=== PATIENT | male | born 1950 | race Caucasian/White ===

== ENCOUNTER → 2017-06-15 | Outpatient (CLI) | payer MEDICARE ==
[2017-06-15] VITALS (11 sets, daily range): BP systolic 111–177; BP diastolic 74–97; PULSE 51–73
[~2017-06-15] VITALS: Ht 185.4 cm; Wt 82.7 kg
[~2017-06-15] MED LIST: ASPIRIN 81M81 MG/TA2 PO; PRINZIDE 12.5 M1 TA1 PO; PROVENTIL0.09 MG/A1 IH; XANAX 1MG1 MG PO; ZANTAC 150MG T150 MG PO
[2017-06-15 13:37] LABS: PROTHROMBIN TIME 11.3 SECONDS (9.7-12.8)
== END ==
LOC: COL.RAD 12:21
PROVIDERS: Physician Assistant
DX: K80.20 Calculus of gallbladder without cholecystitis without obstruction (principal); N20.0 Calculus of kidney; B18.2 Chronic viral hepatitis C; Z79.01 Long term (current) use of anticoagulants
CPT/HCPCS: J3010

== ENCOUNTER 2021-02-16 07:07 | Day surgery (SDC) | payer MEDICARE ==
[~2021-02-16] VITALS: Ht 182.9 cm; Wt 69.0 kg
[2021-02-16 07:34] VITALS: BP 118/76; PULSE 87; TEMP 97.7
[2021-02-16] MEDS ORDERED: PRILOTC PO (07:52)
[2021-02-16] MEDS ORDERED: VITAMINC1000TA PO (07:52)
[2021-02-16] MEDS ORDERED: VITAMIN E 400 U4001 PO (07:53)
[2021-02-16] MEDS ORDERED: D3-5050000 IU PO (07:53)
[2021-02-16] MEDS ORDERED: PHARMASSURE ZIN50 MG PO (07:53)
[2021-02-16] MEDS ORDERED: VITAMIN B12 781 TAB PO (07:54)
--- NOTE | 2021-02-16 07:56 | NUR ---
TO RM 6 AT 0709-- CALL LIGHT IN REACH WILL CALL FAMILY FOR RIDE HOME
[2021-02-16 09:58] VITALS: BP 105/69; PULSE 75; TEMP 98.7
--- NOTE | 2021-02-16 09:58 | NUR ---
TO RM 6 PER CART FROM OR. RESPONGS TO TACTILE STIMULATION.HE WILL ANSWER QUESTIONS BY NODDING HIS HEAD AND FALL BACK TO SLEEP. DENIES PAIN OR DISCOMFORT. 02 PER MASK AT 6L AND SATS 100% HE CAME OUT OF OR ON .
[2021-02-16] MEDS ORDERED: NORCO 325 MG-51 TAB PO (10:03)
[2021-02-16 10:15] VITALS: BP 112/71; PULSE 77; TEMP 98.7
--- NOTE | 2021-02-16 10:15 | NUR ---
PATIENT MORE AWAKE AND TALKING TO STAFF. DR TATE INTO TALK WITH PATIENT. CONTINUES TO HAVE O2 AT 6L PER MASK AND SATS 100%. DISCONTINUED 02. RECEIVED WATER WITH SIPS OF WATER.
[2021-02-16 10:30] VITALS: BP 117/76; PULSE 73
--- NOTE | 2021-02-16 10:30 | NUR ---
RECEIVED MUFFIN AND HOT OBI. SITTING UP EATING.
[2021-02-16 10:45] VITALS: BP 109/68; PULSE 78
--- NOTE | 2021-02-16 10:45 | NUR ---
RECEIVED 2ND MUFFIN AND HOT CHOCOLATE.
--- NOTE | 2021-02-16 11:05 | NUR ---
ATE 100% AND TOLERATED WELL. RECEIVED DISCHARGE INSTRUCTIONS AND VERBALIZED UNDERSTANDING. DISCONTINUED IV AND INT
--- NOTE | 2021-02-16 11:30 | NUR ---
DISCHARGED PER WC BY NURSING STAFF TO PRIVATE CAR IN CARE OF SISTER IN LAW.
== END 2021-02-16 11:35 | disposition home or self-care (01) ==
LOC: SDCO 07:07
DX: K40.90 Unilateral inguinal hernia, without obstruction or gangrene, not specified as recurrent (principal); I10 Essential (primary) hypertension; J44.9 Chronic obstructive pulmonary disease, unspecified; F41.9 Anxiety disorder, unspecified; F17.210 Nicotine dependence, cigarettes, uncomplicated; Z79.899 Other long term (current) drug therapy; Z79.82 Long term (current) use of aspirin
CPT/HCPCS: C1781; J0690; J1100; J2405; J2704; J3010; J7120

== ENCOUNTER 2022-12-26 10:00 | Day surgery (SDC) | payer MEDICARE ==
[2022-12-26] VITALS (13 sets, daily range): BP systolic 93–125; BP diastolic 56–81; PULSE 71–86; TEMP 97.8
[~2022-12-26] VITALS: Ht 182.9 cm; Wt 68.8 kg
[~2022-12-26 10:00] MED LIST changes: +D3-5050000 IU PO; +NORCO 325 MG-51 TAB PO; +PHARMASSURE ZIN50 MG PO; +PRILOTC PO; +VITAMIN B12 781 TAB PO; +VITAMIN E 400 U4001 PO; +VITAMINC1000TA PO
[2022-12-26] MEDS ORDERED: TOPROL XL 50MG50 MG PO (10:42)
[2022-12-26] MEDS ORDERED: FLOMAX 0.40.4 MG/CAP PO (10:43)
[2022-12-26] MEDS ORDERED: NITROSTAT0.4 MG/TAB SL (10:44)
[2022-12-26] MEDS ORDERED: PROSCAR 5MG5 MG PO (10:45)
[2022-12-26] MEDS ORDERED: LASIX 40MG TABL40 MG PO (10:46)
[2022-12-26] MEDS ORDERED: PROAIR HFA0.09 MG/AC IH (10:46)
[2022-12-26] MEDS ORDERED: ZESTRIL 10MG10 MG PO (10:46)
[2022-12-26 10:52] LABS: HEMATOCRIT 41.9 % (42.0-52.0); HEMOGLOBIN 14.3 g/dl (13.5-18.0); MEAN CELL VOLUME 92 fl (80.0-100.0); MEAN CORPUSCULAR HEMOGLOBIN 31 pg (27-31); MEAN CORPUSCULAR HGB CONC 34 g/dl (33.0-37.0); MEAN PLATELET VOLUME 10.9 fl (7.4-10.4); PLATELET COUNT 183 K/mm3 (130-400); RED BLOOD COUNT 4.58 M/mm3 (4.20-5.60); REDCELL DISTRIBUTION WIDTH-CV 13.2 % (11.5-14.5)
[2022-12-26 10:55] LABS: PROTHROMBIN TIME 11.6 SECONDS (9.7-12.8)
[2022-12-26] MEDS ORDERED: DOXYCYCLINE 10100 MG PO (11:01)
[2022-12-26] MEDS ORDERED: PREDNISONE20 MG PO (11:02)
[2022-12-26 11:04] LABS: CALCIUM 8.8 mg/dL (8.4-10.2); CREATININE, serum 0.83 mg/dL (0.72-1.25)
--- NOTE | 2022-12-26 12:06 | NUR ---
SEE MERGE FOR ALL MEDICATIONS, VITALS AND INTERVENTIONS.
--- NOTE | 2022-12-26 14:00 | NUR ---
Pt was assisted onto bedpan, passed small amount of stool. Rt groin site remains soft to palpation, and pt is free of complaints. He ate meal tray shortly after return from laboratory courier. Call light in reach.
--- NOTE | 2022-12-26 17:10 | NUR ---
Pt assisted up to restroom following 4 hr flat time post procedure. Rt femoral access site remains soft to palpation and dressing clean, dry and intact following activity. Pt free of complaints and gait is steady. IV DC'd, site wrapped with coban. DC instruction reviewed, pt expresses understanding. He will be assistedou to meet his friend for ride home.
== END 2022-12-26 17:10 | disposition home or self-care (01) ==
LOC: COL.CAR 10:00
PROVIDERS: Internal Medicine Cardiovascular Disease
DX: I42.8 Other cardiomyopathies (principal); I11.0 Hypertensive heart disease with heart failure; F17.210 Nicotine dependence, cigarettes, uncomplicated; I50.21 Acute systolic (congestive) heart failure; F15.91 Other stimulant use, unspecified, in remission
CPT/HCPCS: C1760; C1894; J1644; J2250; J3010; Q9967